=== PATIENT | male | born 1935 | race Caucasian/White ===

== ENCOUNTER 2016-06-24 05:11 | Day surgery (SDC) | payer MEDICARE, BC ==
[2016-06-23 10:46] LABS: BASOPHILS 0.3 % (0-2); EOSINOPHILS 4.4 % (0-7); HEMATOCRIT 40.3 % (42.0-54.0); HEMOGLOBIN 13.4 g/dL (13.5-17.5); IMMATURE GRANULOCYTES 0.3 % (0-5); LYMPHOCYTES 21.3 % (15-50); MCH 30.5 pg (26.0-34.0); MCHC 33.3 g/dL (31.0-37.0); MCV 91.8 fL (80.0-100.0); MEAN PLATELET VOLUME 11.2 fL (7.4-10.4); MONOCYTES 6.9 % (2-11); NEUTROPHILS 66.8 % (40-80); PLATELET COUNT 156 10x3/uL (130-400); RBC 4.39 10x6/uL (4.20-6.10); RDW 13.2 % (11.5-14.5); WBC 6.8 10x3/uL (4.8-10.8)
[2016-06-23 10:47] LABS: APTT 27.1 SECONDS (22.8-39.4); INR 0.98 (0.85-1.17); PROTIME 12.9 SECONDS (11.6-15.0)
[2016-06-23 10:53] LABS: CALCIUM 9.4 mg/dL (8.5-10.1); CREATININE - SERUM 1.5 mg/dL (0.6-1.3)
[~2016-06-24] VITALS: Ht 177.8 cm; Wt 99.8 kg
[~2016-06-24 05:11] MED LIST: ASPIRIN EC81 M1 PO; BENAZEPRIL-HCTZ1 TA4 PO; GLUCOPHAGE500 MG PO; LEVOTHYROXINE75 MCG PO; LIPITOR40 MG PO; NORVASC5 MG PO; VITAMIN D31000 UNIT PO
[2016-06-24 06:52] VITALS: BP 118/65; Ht 177.8 cm; Wt 99.8 kg
--- NOTE | 2016-06-24 10:17 | NUR ---
1000 I V DC WITH CATHER TIP INTACT
== END 2016-06-24 10:15 | disposition home or self-care (01) ==
LOC: D.OPS 05:11 → D.PAN 08:30 → D.OPS 08:30
PROVIDERS: Anesthesiology
DX: M16.0 Bilateral primary osteoarthritis of hip (principal)